=== PATIENT | male | born 1995 | race Caucasian/White ===

== ENCOUNTER 2021-04-01 06:14 | Emergency (ER) | payer OTHER, SELFPAY ==
[2021-04-01] VITALS (9 sets, daily range): BP systolic 105–118; BP diastolic 57–68; PULSE 63–69; RESP 13–20; TEMP 36.6–36.8; O2SAT 97–100; BMI 30.2
[2021-04-01 07:05] LABS: Add Manual Diff / Slide Review NO; Basophils Absolute Auto 0 /uL (0-100); Basophils Percent Auto 0.8 % (0-2); Eosinophils Absolute Auto 200 /uL (0-450); Eosinophils Percent Auto 3.4 % (2-4); Hematocrit 41.6 % (41-53); Hemoglobin 14.3 g/dL (13.5-17.5); Lymphocytes Absolute Auto 1600 /uL (1100-4500); Lymphocytes Percent Auto 25.8 % (25-40); Mean Corpuscular HGB Conc 34.4 % (30-36); Mean Corpuscular Hemoglobin 29.5 PG (26-34); Mean Corpuscular Volume 85.9 fL (80-100); Monocytes Absolute Auto 700 /uL (0-900); Monocytes Percent Auto 10.3 % (3-14); Neutrophils Absolute Auto 3800 /uL (1500-7000); Neutrophils Percent Auto 59.7 % (50-75); Platelet Count 186 X10^3/uL (150-400); Red Blood Cell Count 4.84 X10^6/uL (4.5-5.9); Red Cell Distribution Width 12.7 % (11.6-14.8); White Blood Cell Count 6.4 X10^3/uL (4.5-11.0)
[2021-04-01] MEDS: SODIUM CHLORIDE 0.9% 1,000 ML 1000 ML IV (07:07)
[2021-04-01 07:13] LABS: D Dimer < 200 ng/mL (<230)
[2021-04-01 07:14] LABS: Alanine Aminotransferase 42 IU/L (<50); Albumin 4.5 g/dL (3.5-5.0); Albumin Globulin Ratio 1.8 (1.0-2.8); Alkaline Phosphatase 57 U/L (38-126); Aspartate Aminotransferase 27 IU/L (17-59); BUN Creatinine Ratio 11.9 (6-22); Bilirubin Total 0.5 mg/dL (0.2-1.3); Blood Urea Nitrogen 16 mg/dL (9-20); Calcium 9.1 mg/dL (8.4-10.2); Carbon Dioxide 27 mmol/L (22-32); Chloride 105 mmol/L (98-107); Creatine Kinase 204 U/L (55-170); Estimated Glomerular Filt Rate > 60.0 mL/min (>60); Globulin 2.5 g/dL (1.7-4.1); Glucose 122 mg/dL (70-100); HEMOLYSIS < 15 (0-50); Magnesium 2.2 mg/dL (1.6-2.3); Potassium 4.1 mmol/L (3.4-5.1); Sodium 139 mmol/L (137-145)
--- NOTE | 2021-04-01 07:19 | ED_ITS ---
HPI - General Adult General Chief complaint: Syncope Stated complaint: loss of consciousness, dizzy, chills Time Seen by Provider: 04/01/21 06:32 Source: patient Mode of arrival: Ambulatory Limitations: no limitations History of Present Illness HPI narrative: Otherwise healthy 25-year-old gentleman with no prior medical issues, no current prescription medications and only recreational medications include marijuana awoke this morning severely dizzy, went to go to the bathroom felt he was too dizzy to stand to void and is he went to sit down he passed out. His describes hearing a loud noise with his fall enough that it woke her from sleep. She went to check on him and found him breathing but not alert. She describes some twitching type movement both legs and significant disorientation lasting approximately 15 minutes after he awoke. He was able to walk to the car to get to the emergency room and on arrival in the emergency room complains of a headache, mild dizziness no localizing neurologic findings. He states that he has not recently had a fever, cough, chills, palpitation, headaches or ne urologic complaints specifically no odd smells, flashing lights or other sensation. Has no abdominal pain, no recent vomiting or diarrhea. He has not been drinking does not describe significant sleep deprivation of late. He is never had a seizure there is no family history of seizure. He does not describe any recent head trauma. He does believe that he hit his head when he fell today and complains of some mild left shoulder and elbow contusion type pain. Related Data Previous Rx's Medication Instructions Recorded methylprednisolone 4 mg tablets in 4 mg PO SEE INSTRUCTIONS #1 pac 10/20/16 a dose pack (Medrol (Pedro)) Allergies Allergy/AdvReac Type Severity Reaction Status Date / Time amoxicillin Allergy Unknown HIVES Unverified 08/06/17 11:55 Review of Systems Review of Systems Narrative: Remainder of complete review of systems is otherwise unremarkable except for that included in the HPI. Patient History Social History Smoking Status: Never smoker Smoking Status: Never smoker alcohol intake frequency: 0-2 drinks per day Substance Use Type: marijuana Exam Narrative Exam Narrative: General: Healthy appearing, in no acute distress. Able to give a complete and coherent history. Well-nourished well-developed HEENT: Moist mucous membranes, normal sclera with reactive pupils, no nystagmus, Neck: No JVD, supple without midline tenderness or tenderness of the occipital insert. Respiratory: Lungs are clear to auscultation, no wheezing no rales no rhonchi. Full and symmetrical air movement Cardiac: Regular rate and rhythm no murmurs no bruits Chest: No tenderness to compression of the chest, no obvious rib fractures, no abrasions or contusions. Mild tenderness along the left scapula with full range of motion appreciated Abdomen: Soft, nontender, good bowel tones, no flank pain Skin: Warm and dry, no rashes, no abrasions or contusions Neurologic: Grossly neurologically intact with no obvious asymmetries or abnormalities. NIH score equals 0. Reflexes biceps and patella brisk at 3+ but symmetrical. No clonus. Extremities: No trauma, well perfused. Elbow has full range of motion with minimal tenderness only on the left side. Psych: Cooperative, appropriate insight and affect, fluent speech and appropriate cognitive recall of the event up to this syncopal episode Initial Vital Signs Initial Vital Signs: Vital Signs Pulse Rate 67 04/01/21 06:22 Pulse Oximetry 97 04/01/21 06:22 Course Orders Ordered: ED Orders 04/01/21 06:55 Complete Blood Count AUTO DIFF Stat Comprehensive Metabolic Panel Stat D Dimer Stat Magnesium Stat NT-proBNP (BNP-Adult 18+) Stat Prolactin Stat Troponin & CK Cardiac Panel Stat 04/01/21 07:06 EKG-12 Lead Stat 04/01/21 07:29 CT head/brain wo con Stat 04/01/21 08:24 MR head/brain wo/w con Stat 04/01/21 09:07 Urine Microscopic Stat Discontinued Medications Sodium Chloride (Normal Saline 0.9%) 1,000 mls @ 1,000 mls/hr IV BOLUS ONE Stop: 04/01/21 07:31 Last Infusion: 04/01/21 08:42 Dose: 0 mls/hr Documented by: Admin: 04/01/21 07:07 Dose: 1,000 mls/hr Documented by: MARISSA Vital Signs Vital signs: Vital Signs - 8 hr 04/01/21 06:22 04/01/21 06:25 04/01/21 06:30 Temperature 98.2 F Pulse Rate 67 63 64 Respiratory Rate 16 17 Blood Pressure 108/57 L 109/59 L Pulse Oximetry 97 97 98 04/01/21 07:00 04/01/21 07:30 04/01/21 08:00 Temperature Pulse Rate 66 63 66 Respiratory Rate 20 13 Blood Pressure 118/64 105/64 Pulse Oximetry 100 100 100 04/01/21 08:16 04/01/21 08:30 Temperature Pulse Rate 69 65 Respiratory Rate 13 16 Blood Pressure 110/66 109/63 Pulse Oximetry 99 100 Medical Decision Making Lab Data Result diagrams: 04/01/21 06:55 04/01/21 06:55 Labs: Lab Results 04/01/21 04/01/21 04/01/21 Range/Units 06:55 06:55 06:55 WBC 6.4 (4.5-11.0) X10^3/uL RBC 4.84 (4.5-5.9) X10^6/uL Hgb 14.3 (13.5-17.5) g/dL Hct 41.6 (41-53) % MCV 85.9 (80-100) fL MCH 29.5 (26-34) PG MCHC 34.4 (30-36) % RDW 12.7 (11.6-14.8) % Plt Count 186 (150-400) X10^3/uL Neut % (Auto) 59.7 (50-75) % Lymph % (Auto) 25.8 (25-40) % [place] % (Auto) 10.3 (3-14) % Eos % (Auto) 3.4 (2-4) % Baso % (Auto) 0.8 (0-2) % Neut # (Auto) 3800 (4545-8382) /uL Lymph # (Auto) 1600 (5011-7457) /uL [place] # (Auto) 700 (0-900) /uL Eos # (Auto) 200 (0-450) /uL Baso # (Auto) 0 (0-100) /uL D-Dimer < 200 (<230) ng/mL Sodium 139 (137-145) mmol/L Potassium 4.1 (3.4-5.1) mmol/L Chloride 105 (98-107) mmol/L Carbon Dioxide 27 (22-32) mmol/L BUN 16 (9-20) mg/dL Creatinine 1.34 H (0.66-1.25) mg/dL Estimated GFR > 60.0 (>60) mL/min BUN/Creatinine Ratio 11.9 (6-22) Glucose 122 H (70-100) mg/dL Calcium 9.1 (8.4-10.2) mg/dL Magnesium 2.2 (1.6-2.3) mg/dL Total Bilirubin 0.5 (0.2-1.3) mg/dL AST 27 (17-59) IU/L ALT 42 (<50) IU/L Alkaline Phosphatase 57 (38-126) U/L Total Creatine Kinase 204 H (55-170) U/L CK-MB (CK-2) 1.10 (<2.37) ng/mL CK-MB (CK-2) Rel Index 0.5 L (1.5-5.0) % Troponin I < 0.012 (0.01-0.034) ng/mL NT-Pro-B Natriuret Pep < 11 (<125) pg/mL Total Protein 7.0 (6.3-8.2) g/dL Albumin 4.5 (3.5-5.0) g/dL Globulin 2.5 (1.7-4.1) g/dL Albumin/Globulin Ratio 1.8 (1.0-2.8) Prolactin (3.7-17.9) ng/mL Urine RBC (0-5/HPF) Urine WBC (0-5/HPF) Urine Bacteria (None) Ur Culture Indicated? Micro UA Comment 04/01/21 04/01/21 Range/Units 06:55 09:07 WBC (4.5-11.0) X10^3/uL RBC (4.5-5.9) X10^6/uL Hgb (13.5-17.5) g/dL Hct (41-53) % MCV (80-100) fL MCH (26-34) PG MCHC (30-36) % RDW (11.6-14.8) % Plt Count (150-400) X10^3/uL Neut % (Auto) (50-75) % Lymph % (Auto) (25-40) % [place] % (Auto) (3-14) % Eos % (Auto) (2-4) % Baso % (Auto) (0-2) % Neut # (Auto) (4829-4277) /uL Lymph # (Auto) (0850-0284) /uL [place] # (Auto) (0-900) /uL Eos # (Auto) (0-450) /uL Baso # (Auto) (0-100) /uL D-Dimer (<230) ng/mL Sodium (137-145) mmol/L Potassium (3.4-5.1) mmol/L Chloride (98-107) mmol/L Carbon Dioxide (22-32) mmol/L BUN (9-20) mg/dL Creatinine (0.66-1.25) mg/dL Estimated GFR (>60) mL/min BUN/Creatinine Ratio (6-22) Glucose (70-100) mg/dL Calcium (8.4-10.2) mg/dL Magnesium (1.6-2.3) mg/dL Total Bilirubin (0.2-1.3) mg/dL AST (17-59) IU/L ALT (<50) IU/L Alkaline Phosphatase (38-126) U/L Total Creatine Kinase (55-170) U/L CK-MB (CK-2) (<2.37) ng/mL CK-MB (CK-2) Rel Index (1.5-5.0) % Troponin I (0.01-0.034) ng/mL NT-Pro-B Natriuret Pep (<125) pg/mL Total Protein (6.3-8.2) g/dL Albumin (3.5-5.0) g/dL Globulin (1.7-4.1) g/dL Albumin/Globulin Ratio (1.0-2.8) Prolactin 70.9 H (3.7-17.9) ng/mL Urine RBC None seen (0-5/HPF) Urine WBC None seen (0-5/HPF) Urine Bacteria None seen (None) Ur Culture Indicated? Cult not indicated Micro UA Comment Microscopic normal Urine Dip Bedside Urine Glucose Negative Bedside Urine Bilirubin - Negative Bedside Urine Ketone - Negative Urine Specific [place] 1.030 Bedside Urine Occult Blood - Negative Bedside Urine pH 6.0 Bedside Urine Protein ++ 100 Bedside Urine Urobilinogen - Negative Bedside Urine Nitrite - Negative Bedside Urine Leukocytes - Negative Esterase Point of care testing: Urine Dip Bedside Urine Glucose Negative Bedside Urine Bilirubin - Negative Bedside Urine Ketone - Negative Urine Specific [place] 1.030 Bedside Urine Occult Blood - Negative Bedside Urine pH 6.0 Bedside Urine Protein ++ 100 Bedside Urine Urobilinogen - Negative Bedside Urine Nitrite - Negative Bedside Urine Leukocytes - Negative Esterase Imaging Data CT scan - head: Radiologist's Impression: COMPARISON:? None. ? FINDINGS:? Image quality:? Excellent.? ? CSF spaces:? Basal cisterns are patent.? No extra-axial fluid collections.? Ventricles are normal in size and shape.? ? Brain:? No midline shift.? No intracranial masses or hemorrhage.? Ellis-white matter interface is normal.? ? Skull and face:? Calvarium and visualized facial bones are intact, without suspicious lesions.? ? Sinuses:? Visualized sinuses and mastoids are clear.? ? IMPRESSION:? Negative for acute stroke, hemorrhage, or mass. No evidence of significant intracranial sequelae of acute trauma. ? ? Dictated by: Adama Hilario M.D. on 04/01/2021 at 8:03? ?? MR brain: Radiologist's Impression: ? FINDINGS:? Image quality:? Excellent.? ? CSF spaces:? Ventricles are normal in size and shape.? Basal cisterns are patent.? No extra-axial fluid collections.? ? Brain:? No intracranial hemorrhage, mass, or mass effect.? No abnormal intracranial enhancement.? Ellis-white matter interface appears preserved.? Diffusion weighted images demonstrate no acute infarcts.? Brainstem appear normal.? Normal intravascular flow voids are present.? The hippocampal regions appear normal and symmetric in morphology.? ? Skull and face:? Calvarial marrow signal is normal.? Orbits appear normal.? ? Sinuses:? Sinuses and mastoids are clear.? ? IMPRESSION:? ? 1. No acute intracranial abnormality. ? 2. No definite imaging evidence of mesial temporal sclerosis.? ? ? Dictated by: Baljinder Green M.D. on 04/01/2021 at 8:45? ?? MDM Narrative Medical decision making narrative: 25-year-old gentleman with a syncopal episode this morning. CT and blood work upper reassuring. Prolactin is elevated suggesting possibility of a seizure which does fit clinically with the presentation described. MRI of the brain is ordered. Findings are reviewed with patient and his . MRI is unremarkable. Patient is feeling back to his baseline at this time. He will be discharged home with instructions to follow-up with his primary care physician, he may need Neurology follow-up. Discharge Plan Departure Patient Disposition: Home Clinical Impression: Syncope and collapse, Seizure Instructions: DI for Seizure (Not Epilepsy/Seizure Disorder) Activity Restrictions/Additional Instructions: Thank you for coming in today I am concerned that you had a seizure today. Your prolactin level was elevated and we frequently see this with seizures. There was no evidence of infection, tumors, masses, stroke, bleeding inside her head or other significant abnormalities to explain this episode this morning I would encourage you to follow-up with your regular doctor. Often with first- time seizures aside from the workup we have already done in the emergency department, we do not do much else unless there is a 2nd seizure. I wish you the best Prescriptions: No Action methylprednisolone [Medrol (Pedro)] 4 MG tablets,dose pack 4 mg PO SEE INSTRUCTIONS Qty: 1 0RF
[2021-04-01 07:26] LABS: NT-proBNP (BNP-Adult 18+) < 11 pg/mL (<125); Troponin I < 0.012 ng/mL (0.01-0.034)
[2021-04-01 07:29] LABS: CKMB % Relative Index 0.5 % (1.5-5.0)
--- NOTE | 2021-04-01 07:29 | DI.CT.S_ITS ---
PROCEDURE: CT HEAD/BRAIN WO CON INDICATIONS: syncope, seizure, hit head, no seiaure hx TECHNIQUE: Noncontrast 4.5 mm thick angled axial sections acquired from the foramen magnum to the vertex, with coronal and sagittal reformats. For radiation dose reduction, the following was used: automated exposure control, adjustment of mA and/or kV according to patient size. COMPARISON: None. FINDINGS: Image quality: Excellent. CSF spaces: Basal cisterns are patent. No extra-axial fluid collections. Ventricles are normal in size and shape. Brain: No midline shift. No intracranial masses or hemorrhage. Ellis-white matter interface is normal. Skull and face: Calvarium and visualized facial bones are intact, without suspicious lesions. Sinuses: Visualized sinuses and mastoids are clear. IMPRESSION: Negative for acute stroke, hemorrhage, or mass. No evidence of significant intracranial sequelae of acute trauma. Dictated by: Adama Hilario M.D. on 04/01/2021 at 8:03 Approved by: Adama Hilario M.D. on 04/01/2021 at 8:04
[2021-04-01 08:04] LABS: Prolactin 70.9 ng/mL (3.7-17.9)
--- NOTE | 2021-04-01 08:24 | DI.MRI.S_ITS ---
PROCEDURE: MR HEAD/BRAIN WO/W CON INDICATIONS: new onset seizure TECHNIQUE: Noncontrast axial T1 spin echo, axial T2 fast spin echo, sagittal and axial FLAIR, axial gradient echo, axial diffusion and ADC, coronal thin-slice T2 FSE through the brain. Optional contrast, followed by axial and coronal 3D VIBE or T1 spin echo with fat saturation sequences through the brain. COMPARISON: [facility], CT, CT HEAD/BRAIN WO CON, 04/01/2021, 7:59. FINDINGS: Image quality: Excellent. CSF spaces: Ventricles are normal in size and shape. Basal cisterns are patent. No extra-axial fluid collections. Brain: No intracranial hemorrhage, mass, or mass effect. No abnormal intracranial enhancement. Ellis-white matter interface appears preserved. Diffusion weighted images demonstrate no acute infarcts. Brainstem appear normal. Normal intravascular flow voids are present. The hippocampal regions appear normal and symmetric in morphology. Skull and face: Calvarial marrow signal is normal. Orbits appear normal. Sinuses: Sinuses and mastoids are clear. IMPRESSION: 1. No acute intracranial abnormality. 2. No definite imaging evidence of mesial temporal sclerosis. Dictated by: Baljinder Green M.D. on 04/01/2021 at 8:45 Approved by: Baljinder Green M.D. on 04/01/2021 at 8:49
[2021-04-01 09:38] LABS: Bacteria Urine None Seen; Culture Indicated Urine Cult Not Indicated; RBC Urine None Seen (0-5/HPF); Urine Comments Microscopic Normal; WBC Urine None Seen (0-5/HPF)
== END 2021-04-01 10:50 | disposition home or self-care (01) ==
PROVIDERS: Emergency Medicine; Emergency Provider Emergency Medicine
DX: R55 Syncope and collapse (principal); R56.9 Unspecified convulsions
CPT/HCPCS: 36415; 70450; 70553; 80053; 81003; 81015; 82550; 82553; 83735; 83880; 84146; 84484; 85025; 85379; 93010; 96360; 96361; 99284; 99285; A9579

== ENCOUNTER 2022-03-20 15:33 | Emergency (ER) | payer OTHER, SELFPAY ==
[2022-03-20 15:42] VITALS: BP 145/94; PULSE 91; RESP 16; TEMP 36.6; O2SAT 99; BMI 33.5
--- NOTE | 2022-03-20 15:47 | DI.US.S_ITS ---
PROCEDURE: US SCROTUM INDICATIONS: LEFT INGUINAL AND TESTICLE PAIN. RULE OUT HERNIA WELL. TECHNIQUE: Real-time scanning was performed of the scrotum and testicles, with image documentation. Color and pulse Doppler interrogation was performed of both testicles. COMPARISON: None. FINDINGS: Right: Testicle is normal in size at 2.7 x 2.5 x 3.4 cm, and homogenous in echotexture. Epididymis is normal in overall size and morphology. No hydrocele or varicoceles. Overlying scrotal skin is normal in thickness. Left: Testicle is normal in size at 2.9 x 2.6 x 2.9 cm, and homogeneous in echotexture. Epididymis is normal in overall size and morphology. No hydrocele or varicoceles. Overlying scrotal skin is normal in thickness. Doppler: Color and pulse Doppler demonstrate normal and symmetric arterial flow in both testicles. IMPRESSION: Normal ultrasound of testes. No evidence of inguinal hernia Approved by: Derik Bennett M.D. on 03/20/2022 at 15:57
--- NOTE | 2022-03-20 15:55 | ED.MALEGU ---
HPI - Male Genitourinary <CRESENCIO Dave - Last Filed: 03/20/22 17:05> General Chief complaint: Urogenital-Male Stated complaint: L testicle/groin/abd pain Time Seen by Provider: 03/20/22 15:38 History of Present Illness HPI Narrative: This is a 26-year-old male who presents to the emergency department after a lifting injury that occurred at work on 03/04/2022 resulting in a clinically diagnosed left inguinal hernia and reports increased or ongoing pain to the left inguinal region. He endorses mild left testicular pain, states that it radiates to his left flank and has left pelvic pain. He denies any new sexual contacts. Has not had an ultrasound, denies any blood in his urine, denies dysuria but states that it is hard to have a steady stream. He denies any stool changes, other abdominal pain, or worsened trauma. He is wearing a truss and states that it is helpful, has been taking Tylenol and ibuprofen for his pain. His L and I claim number is [id number]. His injury happened at [employer] and he is a [employer] employee. His primary care provider is Dr. Downs. Related Data Previous Rx's Medication Instructions Recorded methylprednisolone 4 mg tablets in 4 mg PO SEE INSTRUCTIONS ##1 10/20/16 a dose pack (Medrol (Pedro)) Allergies Allergy/AdvReac Type Severity Reaction Status Date / Time amoxicillin Allergy Unknown HIVES Unverified 08/06/17 11:55 Penicillins Allergy Hives Verified 03/20/22 15:44 Review of Systems <CRESENCIO Dave - Last Filed: 03/20/22 17:05> Review of Systems Narrative: Review of systems is negative for acute abnormalities unless otherwise noted in HPI Patient History <CRESENCIO Dave - Last Filed: 03/20/22 17:05> Social History Smoking Status: Never smoker Smoking Status: Never smoker alcohol intake frequency: 0-2 drinks per day Substance Use Type: marijuana Exam <CRESENCIO Dave - Last Filed: 03/20/22 17:05> Narrative Exam Narrative: Reviewed vitals signs and nursing notes. General: cooperative, comfortable, in no acute distress, well groomed HEENT: symmetrical facial expressions, moist mucous membranes GI: abdomen soft, nontender to palpation, nondistended, without masses, rebound tenderness or exquisite tenderness with exam. Left inguinal region without palpable protrusion or palpable mass : Please see below MSK: moves all extremities, neurovascularly intact, no weakness, normal tone Skin: brisk capillary refill, without pallor or erythema Neuro: normal speech and cognition, A&O x3, ambulatory, clear speech Psych: mental status is grossly normal, congruent mood, normal affect, pleasant and cooperative Initial Vital Signs Initial Vital Signs: Vital Signs Temperature 98 F 03/20/22 15:42 Pulse Rate 91 H 03/20/22 15:42 Respiratory Rate 16 03/20/22 15:42 Blood Pressure 145/94 H 03/20/22 15:42 Pulse Oximetry 99 03/20/22 15:42 Oxygen Delivery Method 03/20/22 15:42 General: bladder normal to inspection and bladder normal to palpation External: normal external exam and tenderness Penis: normal penis Meatus: meatus normal Scrotum: scrotum normal and inguinal hernia Testes: epididymal tenderness on the left <Jon Lee DO - Last Filed: 03/20/22 17:08> Initial Vital Signs Initial Vital Signs: Vital Signs Temperature 98 F 03/20/22 15:42 Pulse Rate 91 H 03/20/22 15:42 Respiratory Rate 16 03/20/22 15:42 Blood Pressure 145/94 H 03/20/22 15:42 Pulse Oximetry 99 03/20/22 15:42 Oxygen Delivery Method 03/20/22 15:42 Course <CRESENCIO Dave - Last Filed: 03/20/22 17:05> Orders Ordered: ED Orders 03/20/22 15:45 Urine Culture Stat Urine Microscopic Stat 03/20/22 15:47 US scrotum Stat Discontinued Medications Hydrocodone Bitart/Acetaminophen (Hydrocodone/Acet 5/325 Tablet) 1 tab PO NOW ONE Stop: 03/20/22 16:21 Ketorolac Tromethamine (Ketorolac 30 Mg/Ml Vial) 15 mg IM NOW ONE Stop: 03/20/22 16:21 Last Admin: 03/20/22 16:43 Dose: 15 mg Documented By: NR Vital Signs Vital signs: Vital Signs - 8 hr 03/20/22 15:42 Temperature 98 F Pulse Rate 91 H Respiratory Rate 16 Blood Pressure 145/94 H Pulse Oximetry 99 Oxygen Delivery Method Room Air <Jon Lee DO - Last Filed: 03/20/22 17:08> Orders Ordered: ED Orders 03/20/22 15:45 Urine Culture Stat Urine Microscopic Stat 03/20/22 15:47 US scrotum Stat Discontinued Medications Hydrocodone Bitart/Acetaminophen (Hydrocodone/Acet 5/325 Tablet) 1 tab PO NOW ONE Stop: 03/20/22 16:21 Ketorolac Tromethamine (Ketorolac 30 Mg/Ml Vial) 15 mg IM NOW ONE Stop: 03/20/22 16:21 Last Admin: 03/20/22 16:43 Dose: 15 mg Documented By: NR Vital Signs Vital signs: Vital Signs - 8 hr 03/20/22 15:42 Temperature 98 F Pulse Rate 91 H Respiratory Rate 16 Blood Pressure 145/94 H Pulse Oximetry 99 Oxygen Delivery Method Room Air MDM - Male Genitourinary <CRESENCIO Dave - Last Filed: 03/20/22 17:05> Lab Data Labs: Lab Results 03/20/22 03/20/22 Range/Units 15:45 15:45 Urine Color Cancelled Urine Appearance Cancelled Urine pH Cancelled Ur Specific [place] Cancelled Urine Protein Cancelled Urine Glucose (UA) Cancelled Urine Ketones Cancelled Urine Occult Blood Cancelled Urine Nitrate Cancelled Urine Bilirubin Cancelled Urine Urobilinogen Cancelled Ur Leukocyte Esterase Cancelled Urine RBC Cancelled 1-5/hpf Urine WBC Cancelled 1-5/hpf Ur Squamous Epith Cells Cancelled 0-1 /hpf Ur Transition Epith Cell Cancelled Ur Renal Epithelial Cell Cancelled Calcium Oxalate Crystal Cancelled Uric Acid Crystals Cancelled Triple Phos Crystals Cancelled Other Crystals Cancelled Amorphous Sediment Cancelled Urine Bacteria Cancelled Occasional (0-1) Hyaline Casts Cancelled Granular Casts Cancelled RBC Casts Cancelled WBC Casts Cancelled Other Casts Cancelled Urine Mucus Cancelled Urine Trichomonas Cancelled Urine Yeast Cancelled Urine Sperm Cancelled Ur Culture Indicated? Cancelled Cult not indicated Micro UA Comment Cancelled Urine Dip Bedside Urine Glucose Negative Bedside Urine Bilirubin - Negative Bedside Urine Ketone - Negative Urine Specific [place] 1.030 Bedside Urine Occult Blood - Negative Bedside Urine pH 6.0 Bedside Urine Protein + 30 Bedside Urine Urobilinogen - Negative Bedside Urine Nitrite - Negative Bedside Urine Leukocytes - Negative Esterase Imaging Data US-Scrotal: Radiologist's Impression: PROCEDURE:? US SCROTUM ? INDICATIONS:? LEFT INGUINAL AND TESTICLE PAIN. RULE OUT HERNIA WELL. ? TECHNIQUE:? Real-time scanning was performed of the scrotum and testicles, with image documentation.? Color and pulse Doppler interrogation was performed of both testicles.? ? COMPARISON:? None. ? FINDINGS:? ? Right:? Testicle is normal in size at 2.7 x 2.5 x 3.4 cm, and homogenous in echotexture.? Epididymis is normal in overall size and morphology.? No hydrocele or varicoceles.? Overlying scrotal skin is normal in thickness.? ? Left:? Testicle is normal in size at 2.9 x 2.6 x 2.9 cm, and homogeneous in echotexture.? Epididymis is normal in overall size and morphology.? No hydrocele or varicoceles.? Overlying scrotal skin is normal in thickness.? ? Doppler:? Color and pulse Doppler demonstrate normal and symmetric arterial flow in both testicles.? ? IMPRESSION:? ? Normal ultrasound of testes.? No evidence of inguinal hernia ? ? ? Approved by: Derik Bennett M.D. on 03/20/2022 at 15:57? MDM Narrative Medical decision making narrative: Is a 26-year-old male presents emergency department with left inguinal pain after he was evaluated for a left groin injury after he lifted something heavy on 03/04/2022 at [employer] where he works. He is admitted in and I claim under the number [id number]. He was seen at [facility] initially and clinically diagnosed with a hernia, he has been wearing a truss and complaining of worsening pain and mild left testicular pain. He has been taking ibuprofen and Tylenol states that his symptoms have not improved. Today his urine is negative for infection, scrotal ultrasound is negative for inguinal hernia mass, abscess or other abnormal finding. Normal ultrasound of his testes without evidence of inguinal hernia. This is most likely a groin strain but differential included hernia, cellulitis, abscess, folliculitis, acute cystitis or other urogenital obstruction/infection problem. Encouraged patient to use heat, rest, stay hydrated, use ibuprofen and Tylenol as needed for his symptoms. He declined a hydrocodone today. Patient is appropriate and amenable to discharge home. Vital signs are stable on repeat examination is unremarkable. Patient has been informed of results. Patient has been given strict return to ER precautions for any new or worsening symptoms. Patient understands to follow up closely with outpatient providers as instructed. Patient understands plan and agrees to discharge home. All questions and concerns answered at this time. <Jon Rosa, DO - Last Filed: 03/20/22 17:08> Lab Data Labs: Lab Results 03/20/22 03/20/22 Range/Units 15:45 15:45 Urine Color Cancelled Urine Appearance Cancelled Urine pH Cancelled Ur Specific [place] Cancelled Urine Protein Cancelled Urine Glucose (UA) Cancelled Urine Ketones Cancelled Urine Occult Blood Cancelled Urine Nitrate Cancelled Urine Bilirubin Cancelled Urine Urobilinogen Cancelled Ur Leukocyte Esterase Cancelled Urine RBC Cancelled 1-5/hpf Urine WBC Cancelled 1-5/hpf Ur Squamous Epith Cells Cancelled 0-1 /hpf Ur Transition Epith Cell Cancelled Ur Renal Epithelial Cell Cancelled Calcium Oxalate Crystal Cancelled Uric Acid Crystals Cancelled Triple Phos Crystals Cancelled Other Crystals Cancelled Amorphous Sediment Cancelled Urine Bacteria Cancelled Occasional (0-1) Hyaline Casts Cancelled Granular Casts Cancelled RBC Casts Cancelled WBC Casts Cancelled Other Casts Cancelled Urine Mucus Cancelled Urine Trichomonas Cancelled Urine Yeast Cancelled Urine Sperm Cancelled Ur Culture Indicated? Cancelled Cult not indicated Micro UA Comment Cancelled Urine Dip Bedside Urine Glucose Negative Bedside Urine Bilirubin - Negative Bedside Urine Ketone - Negative Urine Specific [place] 1.030 Bedside Urine Occult Blood - Negative Bedside Urine pH 6.0 Bedside Urine Protein + 30 Bedside Urine Urobilinogen - Negative Bedside Urine Nitrite - Negative Bedside Urine Leukocytes - Negative Esterase Discharge Plan Departure Patient Disposition: Home Clinical Impression: Groin strain Qualifiers: Encounter type: initial encounter Laterality: left Qualified Code(s): S76.212A - Strain of adductor muscle, fascia and tendon of left thigh, initial encounter Instructions: Groin Strain Activity Restrictions/Additional Instructions: *You have been diagnosed with a groin muscle strain, there is no hernia on your ultrasound which is good news. This means you will not need surgery. Please use anti-inflammatories like you have been, ibuprofen 800 mg with food and water every 8 hours, and a topical agent. Lidocaine patches, Voltaren gel, or CBD cream, any of those should help alleviate some pain. Please stay hydrated, empty your bladder frequently, your urine does not show any sign of infection. Please use heat and rest as needed for this to improve, follow-up with your regular doctor if you have worsening symptoms or come back to the emergency department. You can continue to wear the trust if it is helpful otherwise please do not where it too tight as this may be causing some inflammation as well. You can try taking 1000 mg of Tylenol with your 100 mg of ibuprofen doses every 8 hours. *What to do: *Please continue to take your regular medications as directed. [ ] New medication prescriptions sent to your pharmacy: [ ] [ ] New medication written as a paper prescription [x ] No new medications given *Please follow up with your primary care provider in 2-3 days, call for an appointment. Let them know you were seen in the Emergency Department and that we asked that you be seen for follow-up. We will electronically transmit a record of today's note if your PCP is in our system *If you do not have a primary care provider please contact [phone] to establish care with one of the [facility] primary care providers. *Return to Emergency Department if you should have any new, worsening, or concerning symptoms, such as [fever greater than 101F, chills, worsening pain, persistent vomiting or other bothersome symptoms]. Prescriptions: No Action methylprednisolone [Medrol (Pedro)] 4 MG tablets,dose pack 4 mg PO SEE INSTRUCTIONS Qty: 1 0RF <Jon Lee, DO - Last Filed: 03/20/22 17:08> Cosign [facility] Attestation: Dr Lee Co-Sign Statement: I was available for consultation during this patient's emergency department visit. This chart is signed by myself for administrative purposes only. I did not have direct contact with this patient during this visit. They were seen independently by the APC.
[2022-03-20 16:26] LABS: Bacteria Urine Occasional (0-1); Culture Indicated Urine Cult Not Indicated; RBC Urine 1-5/HPF (0-5/HPF); Squamous Epithelial Cell Urine 0-1 /HPF (0-5/HPF); WBC Urine 1-5/HPF (0-5/HPF)
[2022-03-20] MEDS: KETOROLAC 30 MG/ML VIAL 15 MG IM (16:43)
[2022-03-20 17:46] VITALS: BP 143/84; PULSE 87; RESP 18; O2SAT 98
== END 2022-03-20 17:48 | disposition home or self-care (01) ==
PROVIDERS: Emergency Provider Nurse Practitioner Critical Care Medicine
DX: S39.011A Strain of muscle, fascia and tendon of abdomen, initial encounter (principal); X50.9XXA Other and unspecified overexertion or strenuous movements or postures, initial encounter; Y92.512 Supermarket, store or market as the place of occurrence of the external cause; Y99.0 Civilian activity done for income or pay
CPT/HCPCS: 76870; 81003; 81015; 87086; 96372; 99283; J1885